=== PATIENT | male | born 1995 | race Caucasian/White ===

== ENCOUNTER 2018-09-22 23:13 | Emergency (ER) | payer BC ==
[~2018-09-22] VITALS: Ht 185.4 cm; Wt 104.5 kg
[~2018-09-22 23:13] MED LIST: ADV250INH INH; DOXY150C PO; LEVO750T PO; MUCI600T34 PO; PRED10TA2 PO; PRED20TA PO; VENTAER IN
[2018-09-23 00:17] LABS: BASO # 0.1 10^3/uL (0.0-0.2); BASO % 1.1 % (0.0-1.0); EOS # 0.3 10^3/uL (0.0-0.50); EOS % 4.6 % (0.0-3.0); HEMATOCRIT 42.6 % (42.0-52.0); HEMOGLOBIN 14.5 g/dl (13.5-17.5); LYMPH # 3.2 10^3/uL (1.5-6.5); LYMPH % 45.7 % (24.0-44.0); MEAN CORPUSCULAR HEMOGLOBIN 30.5 pg (27.0-33.0); MEAN CORPUSCULAR VOLUME 89.5 fl (80.0-96.0); MONO # 0.7 10^3/uL (0.0-0.8); MONO % 9.7 % (0.0-5.0); NEUTROPHILS # 2.7 10^3/uL (1.8-7.7); NEUTROPHILS % 38.5 % (36.0-66.0); PLATELET COUNT, AUTOMATED 291 10^3/uL (150-450); RED BLOOD COUNT 4.76 10^6/uL (4.30-6.10)
[2018-09-23 00:40] LABS: ALBUMIN 4.1 GM/DL (3.2-5.2); ALT/SGPT 45 U/L (12-78); BILIRUBIN,DIRECT 0.1 MG/DL (0.0-0.2); BILIRUBIN,TOTAL 0.3 MG/DL (0.2-1.0); BLOOD UREA NITROGEN 14 MG/DL (7-18); CALCIUM LEVEL 8.9 MG/DL (8.5-10.1); CARBON DIOXIDE LEVEL 28 MEQ/L (21-32); CHLORIDE LEVEL 108 MEQ/L (98-107); CREATININE FOR GFR 0.92 MG/DL (0.70-1.30); GLOMERULAR FILTRATION RATE > 60.0 (>60); GLUCOSE, FASTING 106 MG/DL (70-100); LIPASE 207 U/L (73-393); POTASSIUM SERUM 4.6 MEQ/L (3.5-5.1); SODIUM LEVEL 144 MEQ/L (136-145); TOTAL PROTEIN 7.2 GM/DL (6.4-8.2)
[2018-09-23] MEDS ORDERED: FLON1SPR NARES (00:58)
[2018-09-23] MEDS ORDERED: AZIT-12 PO (00:58)
[2018-09-23] MEDS ORDERED: AZITHROMYCIN 250 MG TAB PO ONE (01:00)
[2018-09-23] MEDS ORDERED: ALBUTEROL 90 MCG/ACT 8GM HFA INHALER INH ONE (01:00)
[2018-09-23 01:22] VITALS: BP 130/78
== END 2018-09-23 01:23 | disposition home or self-care (01) ==
LOC: M ED 23:13
DX: J32.1 Chronic frontal sinusitis (principal); J45.909 Unspecified asthma, uncomplicated; Z79.899 Other long term (current) drug therapy; Z88.0 Allergy status to penicillin; F17.220 Nicotine dependence, chewing tobacco, uncomplicated

== ENCOUNTER → 2019-04-18 | Outpatient (CLI) | payer BC ==
[~2019-04-18] MED LIST changes: +AZIT-12 PO; +FLON1SPR NARES
--- NOTE | 2019-04-19 02:17 | REP ---
Clinical: Trauma. Laceration third digit. Technique: AP, lateral, bilateral oblique views right third digit . Findings: The osseous structures and joint spaces are intact and normal. There is no evidence for acute fracture or dislocation. Surrounding soft tissues are unremarkable. No subcutaneous emphysema or radiodense foreign body. Impression: Normal examination . No acute fracture or dislocation. Electronically Signed by Roberto Savage MD 04/19/2019 02:08 A
== END ==
LOC: M WUC 19:12
PROVIDERS: ATTEND Physician Assistant
DX: M25.541 Pain in joints of right hand (principal)